=== PATIENT | male | born 1935 | race Two or more races ===

== ENCOUNTER 2019-01-16 02:39 | Inpatient (IN) | payer MEDICARE, OTHER ==
[~2019-01-16] VITALS: Ht 177.8 cm; Wt 82.6 kg
[2019-01-16] MEDS ORDERED: MAG HYDROX/AL HYDROX/SIMETH 30 ML UDC PO PRN (06:00)
[2019-01-16] MEDS ORDERED: ACETAMINOPHEN 325 MG TABLET PO PRN (06:00)
[2019-01-16] MEDS ORDERED: MAGNESIUM HYDROXIDE 30 ML UDC PO PRN (06:00)
[2019-01-16] MEDS ORDERED: LORAZEPAM 0.5 MG TABLET PO PRN (06:00)
[2019-01-16] MEDS ORDERED: ZOLPIDEM TARTRATE 5 MG TABLET PO PRN (06:00)
[2019-01-16 06:18] VITALS: BP 161/93
[2019-01-16] MEDS ORDERED: DORZ10DR11 EACHEYE (06:22)
[2019-01-16] MEDS ORDERED: INSU100V28 IJ (06:25)
[2019-01-16] MEDS ORDERED: MEMA10TA PO (06:26)
[2019-01-16] MEDS ORDERED: FINA5TAB11 PO (06:57)
[2019-01-16] MEDS ORDERED: SIMV10TA6 PO (06:57)
[2019-01-16] MEDS ORDERED: SITA100T PO (06:59)
[2019-01-16] MEDS ORDERED: METF-440 PO (07:00)
[2019-01-16] MEDS ORDERED: METO-356 PO (07:00)
[2019-01-16] MEDS ORDERED: TAMS-12 PO (07:01)
[2019-01-16] MEDS ORDERED: ASPI-605 PO (07:03)
[2019-01-16 08:00] VITALS: BP 165/84
[2019-01-16] MEDS ORDERED: DEXTROSE 50%-WATER 50 ML DISP.SYRIN IV PRN (12:30)
[2019-01-16] MEDS: TIMOLOL MAL/DORZOLAM HCL OPHTH 10 ML BOTTLE EACHEYE SCH ×2 (14:06→17:22)
[2019-01-16 16:00] VITALS: BP 144/75
[2019-01-16] MEDS: SIMVASTATIN 10 MG TABLET PO SCH (17:22)
[2019-01-16] MEDS: MEMANTINE HCL 5 MG TABLET PO SCH (17:22)
[2019-01-16] MEDS: BLOOD SUGAR DIAGNOSTIC 1 EACH STRIP IN SCH ×2 (17:25→22:24)
[2019-01-16] MEDS: INSULIN REGULAR, HUMAN 100 UNIT/ML 3 ML VIAL SQ PRN ×2 (17:34→22:28)
[2019-01-16 20:00] VITALS: BP 154/91
[2019-01-16] MEDS: risperiDONE 0.25 MG TABLET PO SCH (22:25)
[2019-01-17 08:00] VITALS: BP 149/98
[2019-01-17 08:12] LABS: BASOPHILS % (AUTO) 0.4 % (0.0-2.0); EOSINOPHILS % (AUTO) 1.9 % (0.0-6.0); HEMATOCRIT 41 % (39-51); HEMOGLOBIN 13.5 g/dL (13.5-17.5); LYMPHOCYTES # (AUTO) 1.2 /CMM (0.8-4.8); LYMPHOCYTES % (AUTO) 24.1 % (20.0-44.0); MEAN CORPUSCULAR HGB CONC 33 g/dl (31.0-36.0); MEAN CORPUSCULAR VOLUME 80 fL (80-96); MONOCYTES # (AUTO) 0.4 /CMM (0.1-1.30); NEUTROPHILS # (AUTO) 3.3 /CMM (1.8-8.9); NEUTROPHILS % (AUTO) 65.6 % (43.0-81.0); PLATELET COUNT (AUTO) 160 /CMM (150-450); RED BLOOD CELL COUNT(AUTO) 5.09 MIL/uL (4.5-6.0)
[2019-01-17] MEDS: BLOOD SUGAR DIAGNOSTIC 1 EACH STRIP IN SCH ×4 (08:14→22:23)
[2019-01-17] MEDS: MEMANTINE HCL 5 MG TABLET PO SCH ×2 (08:16→16:43)
[2019-01-17] MEDS: TAMSULOSIN 0.4 MG CAP.SR.24H PO SCH (08:16)
[2019-01-17] MEDS: METFORMIN 500 MG TABLET PO SCH (08:16)
[2019-01-17] MEDS: FINASTERIDE (5 MG) 5 MG TABLET PO SCH (08:16)
[2019-01-17] MEDS: METOPROLOL SUCCINATE 25 MG TAB.SR.24H PO SCH (08:17)
[2019-01-17] MEDS: LINAGLIPTIN 5 MG TABLET PO SCH (08:17)
[2019-01-17] MEDS: ASPIRIN EC 81 MG TABLET.DR PO SCH (08:17)
[2019-01-17 08:18] LABS: CHOLESTEROL 148 mg/dL (<200); HDL CHOLESTEROL 40 mg/dL (40-60); LDL 93 mg/dL (0-99); TRIGLYCERIDES 125 mg/dL (30-150)
[2019-01-17] MEDS: TIMOLOL MAL/DORZOLAM HCL OPHTH 10 ML BOTTLE EACHEYE SCH ×3 (08:18→16:43)
[2019-01-17 08:19] LABS: ALANINE AMINOTRANSFERASE 46 U/L (12-78); ALBUMIN 3.3 g/dL (3.4-5.0); ALKALINE PHOSPHATASE 65 U/L (46-116); ASPARTATE AMINOTRANSFERASE 19 U/L (15-37); BILIRUBIN,TOTAL 0.7 mg/dL (0.2-1.0); CALCIUM, SERUM 8.8 mg/dL (8.5-10.1); CARBON DIOXIDE 26 mmol/L (21-32); CHLORIDE 103 mmol/L (98-107); CREATININE 1.2 mg/dL (0.6-1.3); GLUCOSE 247 mg/dL (74-106); MAGNESIUM 1.7 mg/dL (1.8-2.4); PHOSPHORUS 3.7 mg/dL (2.5-4.9); POTASSIUM 3.8 mmol/L (3.5-5.1); SODIUM SERUM 137 mmol/L (136-145); TOTAL PROTEIN, SERUM 6.9 g/dL (6.4-8.2); UREA NITROGEN, BLOOD 13 mg/dL (7-18)
[2019-01-17] MEDS: INSULIN REGULAR, HUMAN 100 UNIT/ML 3 ML VIAL SQ PRN ×3 (08:20→17:09)
[2019-01-17] MEDS ORDERED: MAGNESIUM OXIDE 400 MG TABLET PO ONE (11:00)
[2019-01-17 16:15] VITALS: BP 128/73
[2019-01-17] MEDS: SIMVASTATIN 10 MG TABLET PO SCH (17:29)
[2019-01-17] MEDS: risperiDONE 0.25 MG TABLET PO SCH (22:18)
[2019-01-18] MEDS: BLOOD SUGAR DIAGNOSTIC 1 EACH STRIP IN SCH ×4 (07:30→22:17)
[2019-01-18 08:00] VITALS: BP 113/58
[2019-01-18] MEDS: METFORMIN 500 MG TABLET PO SCH (08:16)
[2019-01-18] MEDS: ASPIRIN EC 81 MG TABLET.DR PO SCH (08:16)
[2019-01-18] MEDS: FINASTERIDE (5 MG) 5 MG TABLET PO SCH (08:16)
[2019-01-18] MEDS: TAMSULOSIN 0.4 MG CAP.SR.24H PO SCH (08:17)
[2019-01-18] MEDS: LINAGLIPTIN 5 MG TABLET PO SCH (08:17)
[2019-01-18] MEDS: METOPROLOL SUCCINATE 25 MG TAB.SR.24H PO SCH (08:17)
[2019-01-18] MEDS: MEMANTINE HCL 5 MG TABLET PO SCH ×2 (08:17→17:56)
[2019-01-18] MEDS: TIMOLOL MAL/DORZOLAM HCL OPHTH 10 ML BOTTLE EACHEYE SCH ×3 (08:45→17:56)
[2019-01-18] MEDS: INSULIN REGULAR, HUMAN 100 UNIT/ML 3 ML VIAL SQ PRN ×2 (12:10→22:25)
[2019-01-18 16:00] VITALS: BP 131/63
[2019-01-18] MEDS: SIMVASTATIN 10 MG TABLET PO SCH (18:09)
[2019-01-18 20:00] VITALS: BP 150/68
[2019-01-18] MEDS: risperiDONE 0.25 MG TABLET PO SCH (22:17)
[2019-01-19] MEDS: BLOOD SUGAR DIAGNOSTIC 1 EACH STRIP IN SCH ×5 (07:56→23:06)
[2019-01-19 08:00] VITALS: BP 122/69
[2019-01-19] MEDS: LINAGLIPTIN 5 MG TABLET PO SCH (09:21)
[2019-01-19] MEDS: ASPIRIN EC 81 MG TABLET.DR PO SCH (09:21)
[2019-01-19] MEDS: TAMSULOSIN 0.4 MG CAP.SR.24H PO SCH (09:21)
[2019-01-19] MEDS: METFORMIN 500 MG TABLET PO SCH (09:21)
[2019-01-19] MEDS: MEMANTINE HCL 5 MG TABLET PO SCH ×2 (09:21→16:39)
[2019-01-19] MEDS: FINASTERIDE (5 MG) 5 MG TABLET PO SCH (09:21)
[2019-01-19] MEDS: METOPROLOL SUCCINATE 25 MG TAB.SR.24H PO SCH (09:22)
[2019-01-19] MEDS: INSULIN REGULAR, HUMAN 100 UNIT/ML 3 ML VIAL SQ PRN ×3 (09:28→17:33)
[2019-01-19] MEDS: TIMOLOL MAL/DORZOLAM HCL OPHTH 10 ML BOTTLE EACHEYE SCH ×3 (09:29→17:31)
[2019-01-19 16:00] VITALS: BP 138/64
[2019-01-19] MEDS: SIMVASTATIN 10 MG TABLET PO SCH (17:31)
[2019-01-19 20:46] VITALS: BP 152/79
[2019-01-19] MEDS: risperiDONE 0.25 MG TABLET PO SCH ×3 (22:30→22:41)
[2019-01-20 08:00] VITALS: BP 137/66
[2019-01-20] MEDS: FINASTERIDE (5 MG) 5 MG TABLET PO SCH (10:00)
[2019-01-20] MEDS: TAMSULOSIN 0.4 MG CAP.SR.24H PO SCH (10:01)
[2019-01-20] MEDS: ASPIRIN EC 81 MG TABLET.DR PO SCH (10:01)
[2019-01-20] MEDS: MEMANTINE HCL 5 MG TABLET PO SCH ×2 (10:01→17:34)
[2019-01-20] MEDS: METOPROLOL SUCCINATE 25 MG TAB.SR.24H PO SCH (10:01)
[2019-01-20] MEDS: LINAGLIPTIN 5 MG TABLET PO SCH (10:01)
[2019-01-20] MEDS: TIMOLOL MAL/DORZOLAM HCL OPHTH 10 ML BOTTLE EACHEYE SCH ×3 (10:03→17:34)
[2019-01-20] MEDS: BLOOD SUGAR DIAGNOSTIC 1 EACH STRIP IN SCH ×3 (11:17→21:14)
[2019-01-20] MEDS: METFORMIN 500 MG TABLET PO SCH (11:17)
[2019-01-20] MEDS: INSULIN REGULAR, HUMAN 100 UNIT/ML 3 ML VIAL SQ PRN (13:12)
[2019-01-20 16:00] VITALS: BP 143/68
[2019-01-20] MEDS: SIMVASTATIN 10 MG TABLET PO SCH (17:34)
[2019-01-20 19:42] VITALS: BP 134/72
[2019-01-21] MEDS: BLOOD SUGAR DIAGNOSTIC 1 EACH STRIP IN SCH ×3 (07:57→17:23)
[2019-01-21 08:00] VITALS: BP 127/68
[2019-01-21] MEDS: TAMSULOSIN 0.4 MG CAP.SR.24H PO SCH (10:00)
[2019-01-21] MEDS: METOPROLOL SUCCINATE 25 MG TAB.SR.24H PO SCH (10:00)
[2019-01-21] MEDS: FINASTERIDE (5 MG) 5 MG TABLET PO SCH (10:00)
[2019-01-21] MEDS: TIMOLOL MAL/DORZOLAM HCL OPHTH 10 ML BOTTLE EACHEYE SCH ×3 (10:01→17:30)
[2019-01-21] MEDS: ASPIRIN EC 81 MG TABLET.DR PO SCH (10:01)
[2019-01-21] MEDS: LINAGLIPTIN 5 MG TABLET PO SCH (10:01)
[2019-01-21] MEDS: INSULIN REGULAR, HUMAN 100 UNIT/ML 3 ML VIAL SQ PRN ×2 (10:10→12:26)
[2019-01-21] MEDS: MEMANTINE HCL 5 MG TABLET PO SCH ×2 (12:27→17:30)
[2019-01-21] MEDS: METFORMIN 500 MG TABLET PO SCH (12:27)
[2019-01-21 17:07] VITALS: BP 113/69
[2019-01-21] MEDS: SIMVASTATIN 10 MG TABLET PO SCH (17:30)
== END 2019-01-21 18:25 | disposition home or self-care (01) | DRG 885 ==
LOC: GPS 05:18
PROVIDERS: ADMIT Psychiatry & Neurology Psychiatry; ATTEND Hospitalist
DX: F29 Unspecified psychosis not due to a substance or known physiological condition (principal); E11.65 Type 2 diabetes mellitus with hyperglycemia; E44.1 Mild protein-calorie malnutrition; R45.851 Suicidal ideations; I10 Essential (primary) hypertension; F03.90 Unspecified dementia, unspecified severity, without behavioral disturbance, psychotic disturbance, mood disturbance, and anxiety; E83.42 Hypomagnesemia; E78.5 Hyperlipidemia, unspecified; E88.09 Other disorders of plasma-protein metabolism, not elsewhere classified; N40.0 Benign prostatic hyperplasia without lower urinary tract symptoms; Z68.26 Body mass index [BMI] 26.0-26.9, adult
CPT/HCPCS: 36415; 80053-TC; 80061-TC; 82962-TC; 83735-TC; 84100-TC; 85025-TC; 87081-TC; J1815